=== PATIENT | female | born 1960 | race Hispanic/Latino ===

== ENCOUNTER 2018-01-03 06:04 | Emergency (ER) | payer SELFPAY ==
[2018-01-03] MEDS ORDERED: HYDROCODONE/APAP 10/325 TAB ONE (06:38)
[2018-01-03] MEDS ORDERED: LIDOCAINE 1% MPF 30 ML VIAL ONE (07:31)
--- NOTE | 2018-01-03 08:06 | ER ---
Nurse's Notes [facility] Name: Kristin Jacinto Age: 57 yrs Sex: Female : 1960 Arrival Date: 01/03/2018 Time: 06:05 Bed 16 Private MD: Diagnosis: Other dislocation of right shoulder joint Presentation: 01/03 06:21 Presenting complaint: Patient states: she thinks she may have slept on her arm wrong aa1 and dislocated it while she was sleeping last night. C/O pain in R shoulder area 10/29. Transition of care: patient was not received from another setting of care. Onset of symptoms was January 03, 2018. Risk Assessment: Do you want to hurt yourself or someone else? Patient reports no desire to harm self or others. Initial Sepsis Screen: Does the patient meet any 2 criteria? No. Patient's initial sepsis screen is negative. Does the patient have a suspected source of infection? No. Patient's initial sepsis screen is negative. Care prior to arrival: None. 06:21 Method Of Arrival: Ambulatory aa1 06:21 Acuity: COLE 3 aa1 Historical: - Allergies: 06:23 Sulfa (Sulfonamide Antibiotics); aa1 - Home Meds: 06:23 Metformin Oral [Active]; cholesterol med [Active]; aa1 - PMHx: 06:23 Diabetes - NIDDM; High Cholesterol; aa1 - PSHx: 06:23 Bladder suspension; aa1 - Immunization history:: Flu vaccine is not up to date. - Social history:: Smoking status: Patient/guardian denies using tobacco. - Ebola Screening: : No symptoms or risks identified at this time. - Family history:: not pertinent. - Hospitalizations: : No recent hospitalization is reported. - History obtained from: daughter. Screenin:23 Abuse screen: Denies threats or abuse. Nutritional screening: No deficits noted. jb4 Tuberculosis screening: No symptoms or risk factors identified. Fall Risk None identified. Assessment: 06:23 General: Appears in no apparent distress. uncomfortable, Behavior is calm, cooperative, jb4 appropriate for age. Pain: Complains of pain in right arm Pain does not radiate. Pain currently is 9 out of 10 on a pain scale. at worst was 10 out of 10 on a pain scale. Neuro: Level of Consciousness is awake, alert, obeys commands, Oriented to person, place, time, situation. Cardiovascular: Capillary refill < 3 seconds in right fingers Patient's skin is warm and dry. Pulses are 3+ in right radial artery. Respiratory: Airway is patent Respiratory effort is even, unlabored, Respiratory pattern is regular, symmetrical. GI: No signs and/or symptoms were reported involving the gastrointestinal system. : No signs and/or symptoms were reported regarding the genitourinary system. EENT: No signs and/or symptoms were reported regarding the EENT system. Derm: Skin is intact, Skin is pink, warm \T\ dry. Musculoskeletal: Range of motion: limited in right shoulder Reports numbness in right arm pain in right arm Tingling in the right arm. 07:30 Reassessment: Patient appears in no apparent distress at this time. Patient and/or family updated on plan of care and expected duration. Pain level reassessed. Patient is alert, oriented x 3, equal unlabored respirations, skin warm/dry/pink. 08:10 Reassessment: Patient appears in no apparent distress at this time. No changes from previously documented assessment. Patient and/or family updated on plan of care and expected duration. Pain level reassessed. Patient is alert, oriented x 3, equal unlabored respirations, skin warm/dry/pink. 08:15 Musculoskeletal: Circulation, motion, and sensation intact. Capillary refill < 3 ch seconds, in bilateral fingers. toes. Range of motion: intact in all extremities, Swelling absent Tenderness present in right shoulder. Vital Signs: 06:23 BP 122 / 82; Pulse 99; Resp 20; Temp 97.2; Pulse Ox 98% on R/A; Weight 72.57 kg; Height aa1 4 ft. 11 in. (149.86 cm); Pain 9/10; 08:15 BP 108 / 62; Pulse 84; Resp 18; Temp 98.6; Pulse Ox 99% on R/A; Pain 2/10; ch 06:23 Body Mass Index 32.32 (72.57 kg, 149.86 cm) aa1 ED Course: 06:05 Patient arrived in ED. ds1 06:13 Tico Koroma, DALTON is Primary Nurse. jb4 06:16 [facility]. kav 06:16 Boone Lui MD is Attending Physician. kav 06:23 Triage completed. aa1 06:23 Patient has correct armband on for positive identification. Bed in low position. Call jb4 light in reach. Side rails up X 1. Pulse ox on. NIBP on. 06:23 Arm band placed on left wrist. aa1 07:12 X-ray completed. Portable x-ray completed in exam room. Patient tolerated procedure jb2 well. 07:16 Shoulder Right (2 View) XRAY In Process Unspecified. EDMS 07:57 Shoulder 1 View In Process Unspecified. EDMS 08:05 Harjinder Richardson MD is Referral Physician. kav 08:15 No apparent distress. Resting quietly. ch 08:15 Assist provider with reduction of right shoulder using manipulation, Set up for ch procedure. Performed by Triston Wolfe MD Immobilized with shoulder immobilizer Patient tolerated well. Patient did not have IV access during this emergency room visit. Administered Medications: 06:36 Drug: Depue 10 mg-325 mg 1 tabs Route: PO; jb4 08:17 Follow up: Response: No adverse reaction; Marked relief of symptoms 07:30 Drug: Lidocaine (1 %) 20 ml Volume: 20 ml; Route: Infiltration; Site: affected area; Outcome: 08:05 Discharge ordered by MD. kav 08:15 Discharged to home ambulatory, with family. ch 08:15 Condition: stable 08:15 Discharge instructions given to patient, family, Instructed on discharge instructions, follow up and referral plans. Demonstrated understanding of instructions, follow-up care, splint care. 08:17 Patient left the ED. Signatures: Dispatcher [employer] Karo Lockhart RN DALTON Elizabeth Gaffney, DALTON RN aa1 Deborah Connor, ELECTRICAL CONTINUITY INSPECTOR ELECTRICAL CONTINUITY INSPECTOR [place] Teresa jb2 Erika Peterson ds1 Tico Koroma, DALTON RN jb4
--- NOTE | 2018-01-03 08:06 | EDPHYS ---
Physician Documentation [facility] Name: Kristin Jacinto Age: 57 yrs Sex: Female : 1960 Arrival Date: 01/03/2018 Time: 06:05 Bed 16 Private MD: ED Physician Boone Lui HPI: 01/03 06:23 This 57 yrs old Female presents to ER via Ambulatory with complaints of Arm kav Pain. 06:23 The patient or guardian complains of pain, that is acute. The complaints affect the kav anterior aspect of right shoulder. Context: The problem was sustained at home, resulted from "...sleeping with her right arm elevated above her head". Onset: The symptoms/episode began/occurred acutely, just prior to arrival. Modifying factors: The symptoms are alleviated by nothing. the symptoms are aggravated by movement. Associated signs and symptoms: The patient has no apparent associated signs or symptoms. Severity of symptoms: At their worst the symptoms were severe, just prior to arrival, in the emergency department the symptoms are unchanged. The patient has experienced similar episodes in the past, a few times. The patient has not recently seen a physician. patient is able to move rue - active rom. Historical: - Allergies: 06:23 Sulfa (Sulfonamide Antibiotics); aa1 - Home Meds: 06:23 Metformin Oral [Active]; cholesterol med [Active]; aa1 - PMHx: 06:23 Diabetes - NIDDM; High Cholesterol; aa1 - PSHx: 06:23 Bladder suspension; aa1 - Immunization history:: Flu vaccine is not up to date. - Social history:: Smoking status: Patient/guardian denies using tobacco. - Ebola Screening: : No symptoms or risks identified at this time. - Family history:: not pertinent. - Hospitalizations: : No recent hospitalization is reported. - History obtained from: daughter. ROS: 06:26 Constitutional: Negative for fever, chills, and weight loss, Eyes: Negative for injury, kav pain, redness, and discharge, ENT: Negative for injury, pain, and discharge, Neck: Negative for injury, pain, and swelling, Cardiovascular: Negative for chest pain, palpitations, and edema, Respiratory: Negative for shortness of breath, cough, wheezing, and pleuritic chest pain, Abdomen/GI: Negative for abdominal pain, nausea, vomiting, diarrhea, and constipation, Back: Negative for injury and pain, : Negative for injury, bleeding, discharge, and swelling, Skin: Negative for injury, rash, and discoloration, Neuro: Negative for headache, weakness, numbness, tingling, and seizure, Psych: Negative for depression, anxiety, suicide ideation, homicidal ideation, and hallucinations, Allergy/Immunology: Negative for hives, rash, and allergies, Endocrine: Negative for neck swelling, polydipsia, polyuria, polyphagia, and marked weight changes, Hematologic/Lymphatic: Negative for swollen nodes, abnormal bleeding, and unusual bruising. 06:26 MS/extremity: Positive for pain. Exam: 06:26 Constitutional: This is a well developed, well nourished patient who is awake, alert, kav and in no acute distress. Head/Face: Normocephalic, atraumatic. Eyes: Pupils equal round and reactive to light, extra-ocular motions intact. Lids and lashes normal. Conjunctiva and sclera are non-icteric and not injected. Cornea within normal limits. Periorbital areas with no swelling, redness, or edema. ENT: Nares patent. No nasal discharge, no septal abnormalities noted. Tympanic membranes are normal and external auditory canals are clear. Oropharynx with no redness, swelling, or masses, exudates, or evidence of obstruction, uvula midline. Mucous membranes moist. Neck: Trachea midline, no thyromegaly or masses palpated, and no cervical lymphadenopathy. Supple, full range of motion without nuchal rigidity, or vertebral point tenderness. No Meningismus. Chest/axilla: Normal chest wall appearance and motion. Nontender with no deformity. No lesions are appreciated. Cardiovascular: Regular rate and rhythm with a normal S1 and S2. No gallops, murmurs, or rubs. Normal PMI, no JVD. No pulse deficits. Respiratory: Lungs have equal breath sounds bilaterally, clear to auscultation and percussion. No rales, rhonchi or wheezes noted. No increased work of breathing, no retractions or nasal flaring. Abdomen/GI: Soft, non-tender, with normal bowel sounds. No distension or tympany. No guarding or rebound. No evidence of tenderness throughout. Back: No spinal tenderness. No costovertebral tenderness. Full range of motion. Skin: Warm, dry with normal turgor. Normal color with no rashes, no lesions, and no evidence of cellulitis. Neuro: Awake and alert, GCS 15, oriented to person, place, time, and situation. Cranial nerves II-XII grossly intact. Motor strength 5/5 in all extremities. Sensory grossly intact. Cerebellar exam normal. Normal gait. Psych: Awake, alert, with orientation to person, place and time. Behavior, mood, and affect are within normal limits. 06:26 Musculoskeletal/extremity: Extremities: noted in the anterior aspect of right shoulder: pain, ROM: limited active range of motion, in the anterior aspect of right shoulder, Circulation is intact in all extremities. Pulses: noted to be 2+ in the right radial artery, right brachial artery and right carotid pulse, Sensation intact. Joints: the right shoulder displays painful range of motion. Vital Signs: 06:23 BP 122 / 82; Pulse 99; Resp 20; Temp 97.2; Pulse Ox 98% on R/A; Weight 72.57 kg; Height aa1 4 ft. 11 in. (149.86 cm); Pain 9/10; 08:15 BP 108 / 62; Pulse 84; Resp 18; Temp 98.6; Pulse Ox 99% on R/A; Pain 2/10; ch 06:23 Body Mass Index 32.32 (72.57 kg, 149.86 cm) aa1 MDM: 06:16 Medical screening is not applicable. [facility] 06:26 Data reviewed: vital signs, nurses notes. kav 07:35 ED course: reduction of right shoulder by dr. lindsay x 1 attempt. kav 08:04 ED course: post-reduction plain film with right shoulder back in socket. [facility] 01/03 06:20 Order name: Shoulder Right (2 View) XRAY [facility] 01/03 07:33 Order name: Sling; Complete Time: 08:38 [facility] 01/03 07:54 Order name: Shoulder 1 View EDMS Administered Medications: 06:36 Drug: [place] 10 mg-325 mg 1 tabs Route: PO; jb4 08:17 Follow up: Response: No adverse reaction; Marked relief of symptoms ch 07:30 Drug: Lidocaine (1 %) 20 ml Volume: 20 ml; Route: Infiltration; Site: affected area; Disposition: 01/03/18 08:05 Discharged to Home. Impression: Other dislocation of right shoulder joint. - Condition is Stable. - Medication Reconciliation Form, Thank You Letter form. - Follow up: Harjinder Richardson; When: 2 - 3 days; Reason: Recheck today's complaints, Continuance of care, Re-evaluation by your physician. - Problem is an acute exacerbation. - Symptoms have improved. - Notes: wear sling on right upper extremity until seen for follow-up appointment with orthopaedic surgeon Addendum: 01/05/2018 06:48 Co-signature as Attending Physician, Boone Lui MD. g s Signatures: Dispatcher [employer] EDID Karo Davis, RN RN Elizabeth Gaffney RN RN aa1 Deborah Connor, FEDERAL APPELLATE LAW CLERK FEDERAL APPELLATE LAW CLERK Tico Lau RN RN jb4 Boone Lui MD MD Corrections: (The following items were deleted from the chart) 01/03 07:54 07:34 Shoulder Right 2 View+RAD.RAD.[email or web address] ordered. [facility] 08:17 08:05 01/03/2018 08:05 Discharged to Home. Impression: Other dislocation of right ch shoulder joint. Condition is Stable. Forms are Medication Reconciliation Form, Thank You Letter, Antibiotic Education, Prescription Opioid Use. Follow up: Harjinder Richardson; When: 2 - 3 days; Reason: Recheck today's complaints, Continuance of care, Re-evaluation by your physician. Problem is an acute exacerbation. Symptoms have improved. kav
--- NOTE | 2018-01-03 08:26 | RAD REPORT ---
EXAM DESCRIPTION: RAD - Shoulder Right 2 View - 01/03/2018 7:16 am CLINICAL HISTORY: Right shoulder pain status post injury FINDINGS: Anterior right humeral head dislocation. Hill-Sachs deformity
--- NOTE | 2018-01-03 08:27 | RAD REPORT ---
EXAM DESCRIPTION: RAD - Shoulder 1 View - 01/03/2018 7:56 am CLINICAL HISTORY: Right shoulder dislocation FINDINGS: Previously described dislocation appears reduced
== END 2018-01-03 08:17 | disposition home or self-care (01) ==
LOC: ER 06:04
PROC: 0RSJXZZ Reposition Right Shoulder Joint, External Approach (ICD-10-PCS; principal; 2018-01-03)
DX: S43.084A Other dislocation of right shoulder joint, initial encounter (principal); X58.XXXA Exposure to other specified factors, initial encounter; Y93.89 Activity, other specified; Y92.009 Unspecified place in unspecified non-institutional (private) residence as the place of occurrence of the external cause; Z88.2 Allergy status to sulfonamides; E11.9 Type 2 diabetes mellitus without complications; E78.00 Pure hypercholesterolemia, unspecified
CPT/HCPCS: 73020; 99284

== ENCOUNTER 2024-06-09 07:39 | Emergency (ER) | payer OTHER ==
--- OUTSIDE RECORDS SUMMARY | 2024-06-09 07:43 | XMS REPORT | Continuity of Care Document ---
Author Name Unknown Address [address] [facility] [address] [place] [address] Organization [facility] Address [address] [facility] 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 Role Phone Gabi Gould Primary Care Physician [phone] Elvie Enriquez Attending Clinician + Elke Attending Clinician Unavailab Rafa Mccarty MD Attending Clinician [phone] Doctor Unassigned, [place] Attending Clinician U TIAN Seo Attending Clinician Unavailable Tian Tabor MD Attending Clinician [phone] Elke Admitting Clinician Unavailab juvencio Payers Payer Name Policy Type Policy Number Effective Date Expirati on Date Source [facility] (O) [id number] 2023 00:00:00 [employer] (MEDICARE REPLACEMENT HMO) [id number] 2023 00:00:00 Problems Condition Name Condition Details Condition Category Status Onset Date Resolution Date Last Treatment Date Treating Clinician Comments Source No known active problems No known active problems Disease [facility] Allergies, Adverse Reactions, Alerts Allergy Name Allergy Type Status Severity Reaction(s) Onset Date Inactive Date Treating Clinician Comments Source NO KNOWN ALLERGIE S Drug Class Active [facility] Social History Social Habit Start Date Stop Date Quantity Comments Source [facility] History of Social function 2021-12-27 00:00:00 2021-12-27 00:00:00 [facility] Alcoholic beverage intake 2021-12-27 00:00:00 2021-12-27 00:00:00 Ex-drinker (finding) [facility] Tobacco use and exposure 2021-12-27 00:00:00 2021-12-27 00:00:00 Smokeless tobacco non-user [facility] Alcohol intake 2021-12-27 00:00:00 2021-12-27 00:00:00 Ex-drinker (finding) [facility] Sex assigned at 1960 00:00:00 1960 00:00:00 [facility] Smoking Status Start Date Stop Date Source Never smoked tobacco [facility] Medications Ordered Medication Name Filled Medication Name Start Date Stop Date Current Medication? Ordering Clinician Indication Dosage Frequency Signature (SIG) Comments Components Source atorvastati n (LIPITOR) 20 mg tablet 2021-02 15:06: 20 Yes 20mg Take 20 mg by mouth at bedtime. [facility] metFORMIN 500 mg 24 hr tablet 2021-02 15:06: 20 Yes 500mg Take 500 mg by mouth daily with breakfast. [facility] albuterol sulfate 90 mcg/actuati on aebs 2021-02 15:06: 20 Yes 2{puff} Inhale 2 Puffs as needed for Other (Shortness of breath). [facility] Cetirizine (ZYRTEC) 10 mg capsule 2021-02 15:06: 20 Yes 1{capsu le} Take 1 capsule by mouth as needed for Allergies. [facility] Vital Signs Vital Name Observation Time Observation Value Comments S melina Systolic blood pressure 2021-12-27 20:16:00 123 mm[Hg] [facility] Diastolic blood pressure 2021-12-27 20:16:00 71 mm[Hg] [facility] Heart rate 2021-12-27 20:16:00 100 /min [facility] Body height 2021-12-27 20:16:00 149.9 cm [facility] Body weight 2021-12-27 20:16:00 70.58 kg [facility] BMI 2021-12-27 20:16:00 31.43 kg/m2 [facility] Oxygen saturation in Arterial blood by Pulse oximetry 2021-12-27 20:16:00 99 /min [facility] Procedures Procedure Date / Time Performed Performing Clinicia n Source REFERRAL- REQUEST/RESPONSE 2022-09-06 05:01:00 Doctor Unassigned, [place] [facility] Encounters Start Date/Time End Date/Time Encounter Type Admission Type Attending Clinicians Care Facility Care Department Encounter ID Source 2024-05-05 09:50:05 2024-05-05 09:50:05 Outpatient SFA SFA [id number] Bk [facility] 2023-07-23 00:00:00 2023-07-23 16:58:21 [id number] [facility] 2023-04-05 00:00:00 2023-04-05 00:00:00 Outpatient ROSA_Primo Sawyer AOSM AOSM [id number] [facility] 2022-12-11 00:00:00 2022-12-11 00:00:00 Outpatient DMG DMG [id number] [facility] 2022-12-11 00:00:00 2022-12-11 00:00:00 Outpatient DMG DMG [id number] [facility] 2022-12-10 00:00:00 2022-12-10 00:00:00 Outpatient DMG DMG [id number] [facility] 2022-09-09 00:00:00 2022-09-09 00:00:00 Telephone Rafa Pham [facility] [id number] [facility] 2022-09-06 08:49:30 2022-09-06 08:49:30 Outpatient [facility] [id number] Bk Harman 2022-09-06 00:00:00 2022-09-06 00:00:00 Orders Only Doctor Unassigned, [place] [facility] [id number] [id number] [facility] 2022-08-30 15:39:16 2022-08-30 15:39:16 Outpatient [facility] 12 Bk Harman 2022-08-28 11:31:11 2022-08-28 11:31:11 Outpatient [facility] 10 Bk Sánchez Kimani 2022-08-24 13:37:31 2022-08-24 13:37:31 Outpatient [facility] [id number] Bk Harman 2022-01-23 13:36:59 2022-01-23 13:36:59 Outpatient [facility] [id number] Bk Harman 2021-12-27 13:45:00 2021-12-27 15:15:40 Outpatient R TIAN TABOR [facility] [id number] [facility] 2021-12-27 13:45:00 2021-12-27 15:15:40 Office Visit Tian [facility] [id number] [id number] [facility] 2021-12-14 09:59:12 2021-12-14 09:59:12 Outpatient [facility] [id number] Bk Harman 2021-12-06 14:36:01 2021-12-06 14:36:01 Outpatient [facility] [id number] Bk Harman 2021-12-01 13:21:44 2021-12-01 13:21:44 Outpatient [facility] [id number] Bk Harman 2021-11-24 09:05:15 2021-11-24 09:05:15 Outpatient [facility] [id number] Bk [facility] Results Test Description Test Time Test Comments Results Result Co mments Source TAWANDA NON-REFLEX TO [id number] 08:17:55* Test Item Value Reference Range Interpretation Comme nts ANTI-NUCLEAR ANTIBODIES (test code = 3506) POSITIVE NEGATIVE A METHODOLOGY IS I NDIRECT IMMUNOFLUORESCENT ASSAY (IFA) WITH HUMAN EPITHELIAL (HEP-2) CELL LINE SUBSTRATE. COMPLEMENT [id number] 06:43:31* Test Item Value Reference Range Interpretation Comme nts COMPLEMENT C3 (test code = 3509) 131 MG/DL 90-180 COMPLEMENT [id number] 06:43:31* Test Item Value Reference Range Interpretation Comme nts COMPLEMENT C4 (test code = 3510) 20 MG/DL 10-40 ORTEGA (Sm) [id number] 04:26:02* Test Item Value Reference Range Interpretation Comme nts ORTEGA (Sm) ANTIBODY (test co de = 13127) <0.2 AI <1.0 DNA DS ANTIBODY REFLEX [id number] 04:26:02* Test Item Value Reference Range Interpretation Comme nts dsDNA ANTIBODY (test code = 66816) 5.0 SEE BELOW H NEGATIVE . . . . . . . . . . . . . . IU/ML <=4.9 INDETERMINATE. . . . . . . . . . . . IU/ML 5.0-9.0 POSITIVE . . . . . . . . . . . . . . IU/ML >=10.0 dsDNA ANTIBODY REFLEX (test code = 89324) (NOTE) NEGATIVE NOTE: PLEASE REFER TO RESULTS OF CRITHIDIA DS DNA ANTIBODY. ANTICARDIOLIPIN [id number] 04:26:02* Test Item Value Reference Range Interpretation Comme nts ANTICARDIOLIPIN IgM (test code = 02440) 5 MPL U/ML <20 INTERPRE TIVE INFORMATION INTERPRETATION RESULT NEGATIVE <20 MPL-U/ML POSITIVE >=20 MPL-U/ML International consensus guidelines require anti-cardiolipin IgG orIgM assays or other antiphospholipid antibody assays to be positiveon at least two assays at least 12 weeks apart to support a diagnosisof antiphospholipid antibody syndrome. SEDIMENTATION [id number] 03:34:03* Test Item Value Reference Range Interpretation Comme nts SEDIMENTATION RATE (test cod e = 1017) 34 MM/HOUR 0-20 H TSH, THIRD [id number] 11:46:55* Test Item Value Reference Range Interpretation Comme nts TSH, THIRD GENERATION (test code = 2821) 1.350 UIU/ML 0.400-4.100 UNLESS OTHERWISE INDICATED, ALL TESTING PERFORMED AT [facility] [address] [place] [address] MEDICAL PRACTICE MANAGER: EDMOND VILLAR M.D. CLIA NUMBER [id number] [facility] [place]. [id number] COMPREHENSIVE METABOLIC [id number] 05:43:39* Test Item Value Reference Range Interpretation Comme nts GLUCOSE (test code = 2217) 174 MG/DL 70-99 H BUN (test code = 2208) 18 MG/DL 8-23 CREATININE (test code = 2214) 0.81 MG/DL 0.60-1.30 eGFR (2020 CKD-EPI) (test code = 33887) 81 ML/MIN/1.73 >60 CALC BUN/CREAT (test code = 2235) 22 RATIO 6-28 SODIUM (test code = 2231) 140 MEQ/L 133-146 POTASSIUM (test code = 2228) 4.3 MEQ/L 3.5-5.4 CHLORIDE (test code = 2215) 104 MEQ/L 95-107 CARBON DIOXIDE (test code = 2206) 25 MEQ/L 19-31 CALCIUM (test code = 2209) 9.6 MG/DL 8.5-10.5 PROTEIN, TOTAL (test code = 2229) 7.0 G/DL 6.1-8.3 ALBUMIN (test code = 2201) 4.2 G/DL 3.5-5.2 CALC GLOBULIN (test code = 2240) 2.8 G/DL 1.9-3.7 CALC A/G RATIO (test code = 2234) 1.5 RATIO 1.0-2.6 BILIRUBIN, TOTAL (test code = 2206) 0.3 MG/DL See_Comment [Automated me ssage] The system which generated this result transmitted reference range: <=1.2. The reference range was not used to interpret this result as normal/abnormal. ALKALINE PHOSPHATASE (test code = 2204) 47 U/L 40-140 AST (test code = 2218) 22 U/L 9-40 ALT (test code = 2219) 20 U/L 5-40 LIPID [id number] 05:43:39* Test Item Value Reference Range Interpretation Comme nts CHOLESTEROL (test code = 2210) 203 MG/DL <200 H TRIGLYCERIDES (test code = 2232) 180 MG/DL <150 H HDL CHOLESTEROL (test code = 2220) 38 MG/DL >39 L CALC LDL CHOL (test code = 2237) 133 MG/DL <100 H NOTE: CALCULATED LDL IS BASED ON COLE-ROMERO METHOD WHICHINCLUDES ADJUSTABLE TRIGLYCERIDE:VLDL CHOLESTEROL RATIO.THIS FACTOR VARIES BY MEASURED TRIGLYCERIDE AND NON-HDLCHOLESTEROL CONCENTRATIONS WITH INCREASED CALCULATED LDL SEENIN HIGHER TRIGLYCERIDE OR LOWER NON-HDL SPECIMENS. FOR MOREINFORMATION, SEE CLIENT ANNOUNCEMENT AT [email or web address] [email or web address] RATIO LDL/HDL (test code = 2238) 3.50 RATIO <3.22 H HEMOGLOBIN [id number] 04:49:42* Test Item Value Reference Range Interpretation Comme nts HEMOGLOBIN A1c (test code = 79274) 6.5 % 4.2-5.6 H [place] [employer] GUIDELINES FOR HGB A1C: PREDIABETES/INCREASED RISK . . . . . . . 5.7-6.4% DIAGNOSIS OF DIABETES . . . . . . . . . >=6.5% WITH CONFIRMATION OR APPROPRIATE SYMPTOMS NOTE: ASSAY MAY BE AFFECTED BY HEMOGLOBINOPATHIES (SICKLE CELL ANEMIA, S-C DISEASE, OTHERS) OR ARTIFICIALLY LOWERED BY DECREASED RED CELL SURVIVAL (HEMOLYTIC ANEMIAS, BLOOD LOSS, ETC.). CONSIDER ALTERNATE TESTING OR LABORATORY CONSULTATION. CBC W/AUTO DIFF WITH [id number] 04:02:21* Test Item Value Reference Range Interpretation Comme nts WBC (test code = 1001) 6.8 K/UL 3.5-11.0 RBC (test code = 1002) 3.34 M/UL 3.80-5.40 L HEMOGLOBIN (test code = 1003) 11.0 G/DL 11.5-15.5 L HEMATOCRIT (test code = 1004) 32.6 % 34.0-45.0 L MCV (test code = 1005) 97.6 fL 80.0-99.0 MCH (test code = 1006) 32.9 PG 25.0-33.0 MCHC (test code = 1007) 33.7 G/DL 31.0-36.0 RDW (test code = 1038) 12.3 % 11.5-15.0 NEUTROPHILS (test code = 1008) 55.7 % LYMPHOCYTES (test code = 1010) 33.0 % MONOCYTES (test code = 1011) 7.2 % EOSINOPHILS (test code = 1012) 2.8 % BASOPHILS (test code = 1013) 0.7 % IMMATURE GRANULOCYTES (test code = 1036) 0.6 % NUCLEATED RBCS (test code = 1065) 0.0 /100 WBC'S See_Comment [Automated [employer]] The system which generated this result transmitted reference range: 0.0. The reference range was not used to interpret this result as normal/abnormal. PLATELET COUNT (test code = 1015) 337 K/UL 130-400 ABSOLUTE NEUTROPHILS (test code = 1066) 3.81 K/UL 1.50-7.50 ABSOLUTE LYMPHOCYTES (test code = 1067) 2.26 K/UL 1.00-4.00 ABSOLUTE MONOCYTES (test code = 1068) 0.49 K/UL 0.20-1.00 ABSOLUTE EOSINOPHILS (test code = 1040) 0.19 K/UL 0.00-0.50 ABSOLUTE BASOPHILS (test code = 1069) 0.05 K/UL 0.00-0.20 ABS IMMATURE GRANULOCYTES (test code = 1020) 0.04 K/UL 0.00-0.10 ABS NUCLEATED RBCS (test code = 55506) 0.00 K/UL 0.00-0.11 HEMOGLOBIN [id number] 15:18:34* Test Item Value Reference Range Interpretation Comme nts HEMOGLOBIN A1c (test code = 80944) 6.1 % 4.2-5.6 H UNLESS OTHERWISE INDICATED, [facility] [address] [place] [address], [place] [address] MEDICAL PRACTICE MANAGER: SKY BRYANT M.D. CLIA NUMBER [id number] [facility] [place]. [id number] COMPREHENSIVE METABOLIC [id number] 05:46:13* Test Item Value Reference Range Interpretation Comme nts GLUCOSE (test code = 2216) 109 MG/DL 70-99 H BUN (test code = 2207) 12 MG/DL 8-23 CREATININE (test code = 2213) 0.62 MG/DL 0.60-1.30 eGFR (2020 CKD-EPI) (test code = 86727) 100 ML/MIN/1.73 >60 CALC BUN/CREAT (test code = 2234) 19 RATIO 6-28 SODIUM (test code = 2230) 139 MEQ/L 133-146 POTASSIUM (test code = 2227) 3.9 MEQ/L 3.5-5.4 CHLORIDE (test code = 2214) 104 MEQ/L 95-107 CARBON DIOXIDE (test code = 2205) 22 MEQ/L 19-31 CALCIUM (test code = 2208) 9.1 MG/DL 8.5-10.5 PROTEIN, TOTAL (test code = 2228) 7.4 G/DL 6.1-8.3 ALBUMIN (test code = 2200) 4.5 G/DL 3.5-5.2 CALC GLOBULIN (test code = 2240) 2.9 G/DL 1.9-3.7 CALC A/G RATIO (test code = 2233) 1.6 RATIO 1.0-2.6 BILIRUBIN, TOTAL (test code = 2206) 1.3 MG/DL See_Comment H [Automated me ssage] The system which generated this result transmitted reference range: <=1.2. The reference range was not used to interpret this result as normal/abnormal. ALKALINE PHOSPHATASE (test code = 2203) 61 U/L 40-140 AST (test code = 8) 24 U/L 9-40 ALT (test code = 2219) 22 U/L 5-40 LIPID [id number] 05:46:13* Test Item Value Reference Range Interpretation Comme nts CHOLESTEROL (test code = 2210) 128 MG/DL <200 TRIGLYCERIDES (test code = 2232) 141 MG/DL <150 HDL CHOLESTEROL (test code = 2220) 41 MG/DL >39 CALC LDL CHOL (test code = 2236) 65 MG/DL <100 NOTE: CALCULATED LDL IS BASED ON COLE-ROMERO METHOD WHICHINCLUDES ADJUSTABLE TRIGLYCERIDE:VLDL CHOLESTEROL RATIO.THIS FACTOR VARIES BY MEASURED TRIGLYCERIDE AND NON-HDLCHOLESTEROL CONCENTRATIONS WITH INCREASED CALCULATED LDL SEENIN HIGHER TRIGLYCERIDE OR LOWER NON-HDL SPECIMENS. FOR MOREINFORMATION, SEE CLIENT ANNOUNCEMENT AT [email or web address] RISK RATIO LDL/HDL (test code = 2238) 1.59 RATIO <3.22 LIPID [id number] 05:53:04* Test Item Value Reference Range Interpretation Comme nts CHOLESTEROL (test code = 2210) 180 MG/DL <200 TRIGLYCERIDES (test code = 2232) 197 MG/DL <150 H HDL CHOLESTEROL (test code = 2220) 44 MG/DL >39 CALC LDL CHOL (test code = 2237) 104 MG/DL <100 H NOTE: CALCULATED LDL IS BASED ON COLE-ROMERO METHOD WHICHINCLUDES ADJUSTABLE TRIGLYCERIDE:VLDL CHOLESTEROL RATIO.THIS FACTOR VARIES BY MEASURED TRIGLYCERIDE AND NON-HDLCHOLESTEROL CONCENTRATIONS WITH INCREASED CALCULATED LDL SEENIN HIGHER TRIGLYCERIDE OR LOWER NON-HDL SPECIMENS. FOR MOREINFORMATION, SEE CLIENT ANNOUNCEMENT AT [email or web address] RISK RATIO LDL/HDL (test code = 2238) 2.36 RATIO <3.22 COMPREHENSIVE METABOLIC [id number] 05:53:04* Test Item Value Reference Range Interpretation Comme nts GLUCOSE (test code = 2217) 133 MG/DL 70-99 H BUN (test code = 2207) 12 MG/DL 8-23 CREATININE (test code = 2214) 0.76 MG/DL 0.60-1.30 eGFR (2020 CKD-EPI) (test code = 46461) 88 ML/MIN/1.73 >60 CALC BUN/CREAT (test code = 2235) 16 RATIO 6-28 SODIUM (test code = 223) 140 MEQ/L 133-146 POTASSIUM (test code = 2228) 4.0 MEQ/L 3.5-5.4 CHLORIDE (test code = 2215) 103 MEQ/L 95-107 CARBON DIOXIDE (test code = 2205) 26 MEQ/L 19-31 CALCIUM (test code = 220) 9.7 MG/DL 8.5-10.5 PROTEIN, TOTAL (test code = 2228) 7.8 G/DL 6.1-8.3 ALBUMIN (test code = 2200) 4.8 G/DL 3.5-5.2 CALC GLOBULIN (test code = 2240) 3.0 G/DL 1.9-3.7 CALC A/G RATIO (test code = 2233) 1.6 RATIO 1.0-2.6 BILIRUBIN, TOTAL (test code = 7) 1.4 MG/DL See_Comment H [Automated me ssage] The system which generated this result transmitted reference range: <=1.2. The reference range was not used to interpret this result as normal/abnormal. ALKALINE PHOSPHATASE (test code = 2203) 65 U/L 40-140 AST (test code = 8) 26 U/L 9-40 ALT (test code = 2219) 25 U/L 5-40 TSH, THIRD [id number] 04:53:46* Test Item Value Reference Range Interpretation Comme nts TSH, THIRD GENERATION (test code = 2821) 1.940 UIU/ML 0.400-4.100 UNLESS OTHERWISE INDICATED, ALL TESTING PERFORMED [facility] [address] [place] [address] MEDICAL PRACTICE MANAGER: SKY BRYANT M.D. CLIA NUMBER [id number] [facility] [place]. [id number] CBC W/AUTO DIFF WITH [id number] 04:43:48* Test Item Value Reference Range Interpretation Comme nts WBC (test code = 1001) 8.3 K/UL 3.5-11.0 RBC (test code = 1002) 3.98 M/UL 3.80-5.40 HEMOGLOBIN (test code = 1003) 13.0 G/DL 11.5-15.5 HEMATOCRIT (test code = 1004) 36.2 % 34.0-45.0 MCV (test code = 1005) 91.0 fL 80.0-99.0 MCH (test code = 1006) 32.7 PG 25.0-33.0 MCHC (test code = 1007) 35.9 G/DL 31.0-36.0 RDW (test code = 1038) 12.5 % 11.5-15.0 NEUTROPHILS (test code = 1008) 64.1 % LYMPHOCYTES (test code = 1010) 23.9 % MONOCYTES (test code = 1011) 7.6 % EOSINOPHILS (test code = 1012) 2.4 % BASOPHILS (test code = 1013) 0.8 % IMMATURE GRANULOCYTES (test code = 1036) 1.2 % NUCLEATED RBCS (test code = 1065) 0.0 /100 WBC'S See_Comment [Automated [employer]] The system which generated this result transmitted reference range: 0.0. The reference range was not used to interpret this result as normal/abnormal. PLATELET COUNT (test code = 1015) 349 K/UL 130-400 ABSOLUTE NEUTROPHILS (test code = 1066) 5.30 K/UL 1.50-7.50 ABSOLUTE LYMPHOCYTES (test code = 1067) 1.98 K/UL 1.00-4.00 ABSOLUTE MONOCYTES (test code = 1068) 0.63 K/UL 0.20-1.00 ABSOLUTE EOSINOPHILS (test code = 1040) 0.20 K/UL 0.00-0.50 ABSOLUTE BASOPHILS (test code = 1069) 0.07 K/UL 0.00-0.20 ABS IMMATURE GRANULOCYTES (test code = 1020) 0.10 K/UL 0.00-0.10 ABS NUCLEATED RBCS (test code = 14461) 0.00 K/UL 0.00-0.11 HEMOGLOBIN [id number] 03:20:23* Test Item Value Reference Range Interpretation Comme nts HEMOGLOBIN A1c (test code = 36935) 6.5 % 4.2-5.6 H [place] [employer]ATION GUIDELINES FOR HGB A1C: PREDIABETES/INCREASED RISK . . . . . . . 5.7-6.4% DIAGNOSIS OF DIABETES . . . . . . . . . >=6.5% WITH CONFIRMATION OR APPROPRIATE SYMPTOMS NOTE: ASSAY MAY BE AFFECTED BY HEMOGLOBINOPATHIES (SICKLE CELL ANEMIA, S-C DISEASE, OTHERS) OR ARTIFICIALLY LOWERED BY DECREASED RED CELL SURVIVAL (HEMOLYTIC ANEMIAS, BLOOD LOSS, ETC.). CONSIDER ALTERNATE TESTING OR LABORATORY CONSULTATION. Notes Date/Time Note Provider Source 2022-09-11 09:07:32 Formatting of this n ote might be different from the original. I will have Dr to look over for approval Charlette Crowell [facility] 2022-09-09 10:06:56 Formatting of this n ote might be different from the original. Karen Berman is a 62 year old female Pt is requesting sooner visit for first time appt, she is currently in pain. Please call pt back at [phone]. Mis Mahmood [facility]
--- NOTE | 2024-06-09 08:15 | ER ---
Nurse's Notes [facility] Name: Kristin Berman Age: 64 yrs Sex: Female : 1960 Arrival Date: 06/09/2024 Time: 07:39 Bed 7 Private MD: Diagnosis: Postoperative wound dehiscence Presentation: 06/09 07:57 Chief complaint: Patient states: she had a breast augmentation and surgery to remove ap3 skin from her arms in [place] on 05/21/24. patient reports that some of her sutures are coming out of her left arm pit, creating a hole. Coronavirus screen: At this time, the client does not indicate any symptoms associated with coronavirus-19. Ebola Screen: No symptoms or risks identified at this time. Initial Sepsis Screen: Does the patient meet any 2 criteria? No. Patient's initial sepsis screen is negative. Does the patient have a suspected source of infection? No. Patient's initial sepsis screen is negative. Risk Assessment: Do you want to hurt yourself or someone else? Patient reports no desire to harm self or others. Onset of symptoms is unknown. 07:57 Method Of Arrival: Ambulatory ap3 07:57 Acuity: COLE 2 ap3 Triage Assessment: 08:02 General: Appears uncomfortable, Behavior is calm, cooperative, appropriate for age. ap3 Pain: Complains of pain in right arm and left axilla. Neuro: Level of Consciousness is awake, alert, obeys commands, Oriented to person, place, time, situation. Cardiovascular: Patient's skin is warm and dry. Respiratory: Airway is patent Respiratory effort is even, unlabored, Respiratory pattern is regular, symmetrical. Derm: surgical wounds present. Historical: - Allergies: 08:00 Sulfa (Sulfonamide Antibiotics); ap3 - Home Meds: 08:00 Methotrexate Sodium Oral [Active]; Tramadol Oral [Active]; hydroxychloroquine oral ap3 [Active]; atorvastatin oral [Active]; - PMHx: 08:00 Diabetes - NIDDM; High Cholesterol; Arthritis; ap3 - Immunization history:: Adult Immunizations unknown. - Infectious Disease History:: Denies. - Social history:: Smoking status: Patient denies any tobacco usage or history of. - Family history:: not pertinent. Screenin:03 Abuse screen: Denies threats or abuse. Nutritional screening: No deficits noted. ap3 Tuberculosis screening: No symptoms or risk factors identified. 08:36 [facility] ED Fall Risk Assessment (Adult) History of falling in the last 3 months, jl7 including since admission No falls in past 3 months (0 pts) Confusion or Disorientation No (0 pts) Intoxicated or Sedated No (0 pts) Impaired Gait No (0 pts) Mobility Assist Device Used No (0 pt) Altered Elimination No (0 pt) Score/Fall Risk Level 0 - 2 = Low Risk Oriented to surroundings, Maintained a safe environment. Assessment: 08:36 General: Appears in no apparent distress. uncomfortable, Behavior is calm, cooperative, jl7 appropriate for age. Neuro: Level of Consciousness is awake, alert, obeys commands, Oriented to person, place, time, situation. Cardiovascular: Patient's skin is warm and dry. Respiratory: Airway is patent Respiratory effort is even, unlabored, Respiratory pattern is regular, symmetrical. Derm: Skin is pink, warm \T\ dry. Wound noted left axilla Wound is dehisced incision with dark red drainage noted. Vital Signs: 07:57 BP 118 / 63; Pulse 79; Resp 18; Temp 98.5(O); Pulse Ox 99% on R/A; Weight 66.68 kg; ap3 Height 4 ft. 11 in. ; 07:57 Body Mass Index 29.69 (66.68 kg, 149.86 cm) ap3 ED Course: 07:44 Patient arrived in ED. im 07:48 Hector Martin MD is Attending Physician. rt 07:54 Maritza Hodges, DALTON is Primary Nurse. jl7 08:00 Triage completed. ap3 08:03 Arm band placed on right wrist. ap3 08:36 Patient has correct armband on for positive identification. Provided Education on: jl7 wound care. 08:36 No provider procedures requiring assistance completed. Patient did not have IV access jl7 during this emergency room visit. Wound care: to incision located on left axilla was cleaned with dressed with 4X4s, ABD pads. Administered Medications: No medications were administered Medication: 08:36 VIS not applicable for this client. jl7 Outcome: 08:15 Discharge ordered by . rt 08:36 Discharged to home ambulatory, jl7 08:36 Condition: stable 08:36 Discharge instructions given to patient, family, Instructed on discharge instructions, follow up and referral plans. medication usage, Demonstrated understanding of instructions, follow-up care, medications, Prescriptions given X 1, 08:39 Patient left the ED. jl7 Signatures: Maritza Hodges RN RN jl7 Orin Rosenberg RN RN ap3 Hector Martin MD MD rt Maye Damian Corrections: (The following items were deleted from the chart) 08:38 08:36 [facility] ED Fall Risk Assessment (Adult) History of falling in the last 3 months, jl7 including since admission No falls in past 3 months (0 pts) Confusion or Disorientation No (0 pts) Intoxicated or Sedated No (0 pts) Impaired Gait No (0 pts) Mobility Assist Device Used No (0 pt) Altered Elimination No (0 pt) Score/Fall Risk Level 0 - 2 = Low Risk jl7
--- NOTE | 2024-06-09 08:15 | EDPHYS ---
Physician Documentation [facility] Name: Kristin Berman Age: 64 yrs Sex: Female : 1960 Arrival Date: 06/09/2024 Time: 07:39 Bed 7 Private MD: ED Physician Hector Martin HPI: 06/09 09:17 This 64 yrs old Female presents to ER via Ambulatory with complaints of Suture rt Recheck. 09:17 Almost 3 weeks ago, the patient had surgery in [place] to remove excess skin from the rt left arm as well as have a breast augmentation. Patient states that about 2 days ago, she had wound dehiscence to the axilla where she had skin removed. Of note, she does have an appointment coming up with her surgeon in [place]. Reports scant drainage of blood but denies purulence. Denies other acute complaints at this time, symptoms are moderate severity, no other aggravating or alleviating factors.. Historical: - Allergies: 08:00 Sulfa (Sulfonamide Antibiotics); ap3 - Home Meds: 08:00 Methotrexate Sodium Oral [Active]; Tramadol Oral [Active]; hydroxychloroquine oral ap3 [Active]; atorvastatin oral [Active]; - PMHx: 08:00 Diabetes - NIDDM; High Cholesterol; Arthritis; ap3 - Immunization history:: Adult Immunizations unknown. - Infectious Disease History:: Denies. - Social history:: Smoking status: Patient denies any tobacco usage or history of. - Family history:: not pertinent. ROS: 09:17 Constitutional: Negative for fever, chills, and weight loss, Neuro: Negative for rt headache, weakness, numbness, tingling, and seizure, Psych: Negative for depression, anxiety, suicide ideation, homicidal ideation, and hallucinations, 09:17 MS/extremity: Positive for Wound, Exam: 09:17 Constitutional: This is a well developed, well nourished patient who is awake, alert, rt and in no acute distress. Head/Face: Normocephalic, atraumatic. Neuro: Awake and alert, GCS 15, oriented to person, place, time, and situation. Cranial nerves II-XII grossly intact. Motor strength 5/5 in all extremities. Sensory grossly intact. Cerebellar exam normal. Normal gait. Psych: Awake, alert, with orientation to person, place and time. Behavior, mood, and affect are within normal limits. 09:17 Skin: At the left axilla, there appears to be a wound dehiscence with a scant amount of bloody effluent, no purulence noted, no surrounding erythema, no focal tenderness. The gapped area appears to be about 2 cm in length. Vital Signs: 07:57 BP 118 / 63; Pulse 79; Resp 18; Temp 98.5(O); Pulse Ox 99% on R/A; Weight 66.68 kg; ap3 Height 4 ft. 11 in. ; 07:57 Body Mass Index 29.69 (66.68 kg, 149.86 cm) ap3 MDM: 08:07 Medical Screening Exam initiated rt 09:17 Differential diagnosis: Wound dehiscence, wound infection. Data reviewed: vital signs, rt nurses notes. Test considered but Not performed: Other Details afebrile, no signs of infection, labs, imaging are not indicated. Care significantly affected by the following chronic conditions: Diabetes. Counseling: I had a detailed discussion with the patient and/or guardian regarding the historical points, exam findings, and any diagnostic results supporting the discharge/admit diagnosis, the need for outpatient follow up. ED course: Patient has had an open wound for about 3 days, she does have an appointment coming up with her surgeon. I informed the patient that bedside attempts at repair from the emergency department would have a high risk of infection, at this point, will leave open, put on wet-to-dry dressings and put the patient on prophylactic antibiotics. She is understanding and will follow-up with her surgeon for further care of the wound dehiscence.. Administered Medications: No medications were administered Disposition Summary: 06/09/24 08:15 Discharge Ordered Notes: Location: Home rt Problem: new rt Symptoms: are unchanged rt Condition: Stable rt Diagnosis - Postoperative wound dehiscence rt Followup: rt - With: Private Physician - When: 2 - 3 days - Reason: Discharge Instructions: - Discharge Summary Sheet rt - Wound Care, Adult rt Forms: - Medication Reconciliation Form rt - Antibiotic Education rt - Prescription Opioid Use rt - Patient Portal Instructions rt - Leadership Thank You Letter rt Prescriptions: - Doxycycline Hyclate 100 mg Oral Tablet - take 1 tablet ORAL route once daily; 10 tablet; Refills: 0, Product Selection rt Permitted Signatures: Orin Rosenberg RN RN ap3 Hector Martin, MD rt
[2024-06-09 08:47] VITALS: BP 118/63; TEMP 98.5; O2SAT 99
== END 2024-06-09 08:39 | disposition home or self-care (01) ==
LOC: ER 07:39
DX: T81.31XA Disruption of external operation (surgical) wound, not elsewhere classified, initial encounter (principal); Z98.82 Breast implant status
CPT/HCPCS: 99283